=== PATIENT | female | born 1965 | race Caucasian/White ===

== ENCOUNTER → 2016-07-03 | Outpatient (CLI) | payer BC ==
[~2016-07-03] MED LIST: AVONEX IM; CALCTAB5 PO; CYCL0.052 OPB; ERGO1CAP35 PO; METH750T PO; PRED20TA2 PO; SERT25TA PO
== END | disposition home or self-care (01) ==
LOC: C.PAPS 09:15
PROVIDERS: ATTEND Obstetrics & Gynecology
DX: Z01.419 Encounter for gynecological examination (general) (routine) without abnormal findings (principal)

== ENCOUNTER → 2016-12-04 | Outpatient (CLI) | payer BC ==
--- NOTE | 2016-12-05 07:47 | MAMMOGRAPHY REPORT ---
BILATERAL DIGITAL SCREENING MAMMOGRAM TOMOSYNTHESIS WITH CAD: 12/04/2016 CLINICAL HISTORY: Routine screening. Patient has no complaints. TECHNIQUE: Breast tomosynthesis in addition to standard 2D mammography was performed. Current study was also evaluated with a Computer Aided Detection (CAD) system. COMPARISON: Comparison is made to exams dated: 11/29/2015 mammogram, 11/23/2014 mammogram, 10/27/2013 mammogram, 10/21/2012 mammogram, 09/11/2011 mammogram, and 09/05/2010 mammogram - [facility] enter. BREAST COMPOSITION: There are scattered areas of fibroglandular density in both breasts. FINDINGS: No suspicious masses, calcifications, or areas of architectural distortion are noted in ei ther breast. There has been no significant interval change compared to prior exams. A biopsy marker clip is again noted in the left 12:00 breast. IMPRESSION: ACR BI-RADS CATEGORY 2: BENIGN There is no mammographic evidence of malignancy. A 1 year screening mammogram is recommended. The pa tient will receive written notification of the results. Approximately 10% of breast cancers are not detected with mammography. A negative mammographic report should not delay biopsy if a clinically suggestive mass is present. Khushi Faustin M.D. /:12/04/2016 12:50:09 Flight Manager: Benita [facility] letter sent: Normal 1/2 BI-RADS Code: ACR BI-RADS Category 2: Benign
== END | disposition home or self-care (01) ==
LOC: C.MAMM 09:15
PROVIDERS: ATTEND Obstetrics & Gynecology
DX: Z12.31 Encounter for screening mammogram for malignant neoplasm of breast (principal)

== ENCOUNTER → 2016-12-30 | Outpatient (CLI) | payer BC ==
[~2016-12-30] MED LIST changes: +GADAVIST IV PRN
--- NOTE | 2016-12-30 21:03 | DIAGNOSTIC IMAGING REPORT ---
BRAIN COMBO FOR MS CLINICAL HISTORY: Multiple sclerosis. Fatigue. Bladder issues. COMPARISON STUDY: MRI of the brain May 17, 2015. TECHNIQUE: Utilizing a 1.5 Angelica magnet, multiplanar, multiecho imaging of the brain was performed pre and postcontrast administration according to the multiple sclerosis protocol. Injection of 7 cc of Gadavist IV was uneventful. FINDINGS: There are no areas of restricted diffusion. No acute intracranial hemorrhage, midline shift or mass effect is present. Ventricular system is normal. Basilar cisterns are patent. There are no extra-axial collections. Flow-voids for the major intracranial vessels are present. There is no intracranial mass or pathologic enhancement. There is no parenchymal enhancement to suggest active demyelination. Several white matter T2 hyperintense foci are unchanged since MRI of May 17, 2015. No new plaques are identified. Calvarial signal is normal. Orbits are unremarkable. IMPRESSION: 1. No acute intracranial findings. 2. No change in a few white matter T2 hyperintense foci which likely reflect previous foci of demyelination since MRI of May 17, 2015. No new plaques. No evidence of active demyelination. Electronically signed by: Héctor Ortiz M.D. 12/30/2016 9:02 PM Dictated Date/Time: 12/30/2016 8:55 PM
--- NOTE | 2016-12-30 21:19 | DIAGNOSTIC IMAGING REPORT ---
MRI OF THE CERVICAL SPINE WITH AND WITHOUT CONTRAST CLINICAL HISTORY: Multiple sclerosis. Fatigue. Bladder issues. COMPARISON: MRI the cervical spine May 17, 2015. TECHNIQUE: Utilizing a 1.5 Angelica magnet and dedicated coil, multiplanar, multiecho imaging of the cervical spine was performed before and after intravenous administration of 7 of Gadavist. FINDINGS: Alignment of the cervical spine is anatomic. Vertebral body heights are maintained. There is no suspicious marrow replacement. Cervical cord signal and caliber are normal. No abnormal cord enhancement is identified. There is no intracanalicular mass or fluid collection. C2-C3: The central canal and neural foramen are patent. C3-C4: The central canal and left neural foramen are patent. There is mild narrowing of the right neural foramen due to uncovertebral hypertrophy. C4-C5: The central canal and neural foramen are patent. C5-C6: There is minimal disc space narrowing. The central canal is patent. There is mild bilateral neural foraminal stenosis. C6-C7: Central canal and neural foramen are patent. C7-T1: Central canal and neural foramen are patent. IMPRESSION: 1. Normal cervical cord signal and caliber. No evidence of cervical cord demyelination. 2. Mild multilevel degenerative disc disease and facet arthrosis. Patent central canal with mild multilevel neural foraminal stenosis. Electronically signed by: Héctor Ortiz M.D. 12/30/2016 9:18 PM Dictated Date/Time: 12/30/2016 9:13 PM
== END | disposition home or self-care (01) ==
LOC: C.MRI 19:04
PROVIDERS: ATTEND Psychiatry & Neurology Neurology
DX: G35 Multiple sclerosis (principal); M50.322 Other cervical disc degeneration at C5-C6 level; M48.02 Spinal stenosis, cervical region

== ENCOUNTER → 2017-03-13 | Outpatient (CLI) | payer OTHER ==
[~2017-03-13] MED LIST changes: -GADAVIST IV PRN
== END | disposition home or self-care (01) ==
LOC: C.LAB1850 07:39
PROVIDERS: ATTEND Physician Assistant
DX: R19.7 Diarrhea, unspecified (principal)

== ENCOUNTER → 2017-03-19 | Outpatient (CLI) | payer OTHER ==
[~2017-03-19] MED LIST changes: +GADAVIST IV PRN
--- NOTE | 2017-03-19 22:59 | DIAGNOSTIC IMAGING REPORT ---
THORACIC SPINE MRI WITH AND WITHOUT CONTRAST HISTORY: Bilateral leg pain. G35 Multiple sclerosis [id number] TECHNIQUE: Multiplanar multisequence MRI of the thoracic spine was performed both before and after the intravenous administration of contrast. COMPARISON: None. FINDINGS: Alignment and curvature are intact. No fracture or subluxation. No significant central canal or neural foraminal narrowing. This spaces are relatively preserved for age. The thoracic spinal cord is normal in course, caliber, and signal intensity. No abnormal enhancement. Paraspinal soft tissues are unremarkable. A 7 mm T2 hyperintense lesion within the right hepatic lobe is difficult to characterize due to its small size but favors a cyst or hemangioma. IMPRESSION: Normal thoracic spine MRI. Electronically signed by: Juan Marie M.D. 03/19/2017 10:58 PM Dictated Date/Time: 03/19/2017 10:55 PM
== END | disposition home or self-care (01) ==
LOC: C.MRI 20:34
PROVIDERS: ATTEND Psychiatry & Neurology Neurology
DX: G35 Multiple sclerosis (principal)